=== PATIENT | female | born 1965 | race Two or more races ===

== ENCOUNTER 2018-08-15 09:00 | Emergency (ER) | payer SELFPAY ==
[~2018-08-15] VITALS: Ht 165.1 cm; Wt 64.0 kg
--- NOTE | 2018-08-15 09:07 | NUR ---
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
--- NOTE | 2018-08-15 09:11 | NUR ---
SEEN AND EXAMINED BY DR. ALFORD.
--- NOTE | 2018-08-15 09:14 | NUR ---
verified with Dr Rodriguez, pt is not code stroke. CT order changed to regular head CT.
[2018-08-15] MEDS ORDERED: IV NS 0.9% 1,000 ML BAG IV ONE (09:30)
[2018-08-15] MEDS ORDERED: ONDANSETRON HCL/PF 4 MG/2 ML VIAL ONE (09:30)
[2018-08-15] MEDS ORDERED: ONDANSETRON HCL/PF - ER 4 MG/2 ML VIAL IV ONE (09:30)
--- NOTE | 2018-08-15 09:30 | NUR ---
LABS DRAWNED AND SENT TO LAB. AWAITING RESULTS.
[2018-08-15 09:32] LABS: BASOPHILS # (AUTO) 0.1 /CMM (0.0-0.2); BASOPHILS % (AUTO) 1.2 % (0.0-2.0); EOSINOPHILS % (AUTO) 3.6 % (0.0-6.0); HEMATOCRIT 38 % (33-45); LYMPHOCYTES # (AUTO) 2.3 /CMM (0.8-4.8); LYMPHOCYTES % (AUTO) 37.9 % (20.0-44.0); MEAN CORPUSCULAR HGB CONC 35 g/dl (31.0-36.0); MEAN CORPUSCULAR VOLUME 92 fL (82-100); MONOCYTES # (AUTO) 0.4 /CMM (0.1-1.30); NEUTROPHILS # (AUTO) 3.1 /CMM (1.8-8.9); NEUTROPHILS % (AUTO) 50.3 % (43.0-81.0); PLATELET COUNT (AUTO) 190 /CMM (150-450); RED BLOOD CELL COUNT(AUTO) 4.07 MIL/uL (4.0-5.2); WHITE BLOOD COUNT (AUTO) 6.1 K/uL (4.3-11.0)
[2018-08-15 09:38] LABS: CALCIUM, SERUM 9.5 mg/dL (8.5-10.1); CREATININE 0.7 mg/dL (0.6-1.3); POTASSIUM 3.9 mmol/L (3.5-5.1)
--- NOTE | 2018-08-15 09:58 | NUR ---
PT IS WHEELED TO CT SCAN VIA [facility].
--- NOTE | 2018-08-15 10:00 | NUR ---
pt returned from CT
[2018-08-15] MEDS ORDERED: KETOROLAC TROMETHAMINE INJ 30 MG/ML VIAL ONE (10:11)
[2018-08-15] MEDS ORDERED: KETOROLAC TROMETHAMINE INJ 30 MG/ML VIAL IV ONE (10:30)
--- NOTE | 2018-08-15 11:07 | NUR ---
IV removed. Catheter intact and site benign. Pressure and 4x4 applied to site. No bleeding noted. Patient discharged to home in stable condition. Written and verbal after care instructions given. Patient verbalizes understanding of instruction.
[2018-08-15 11:09] VITALS: BP 136/65
== END 2018-08-15 11:10 | disposition home or self-care (01) ==
LOC: ER 09:02
DX: R51 Headache (principal); R03.0 Elevated blood-pressure reading, without diagnosis of hypertension; F17.200 Nicotine dependence, unspecified, uncomplicated; F41.9 Anxiety disorder, unspecified; F32.9 Major depressive disorder, single episode, unspecified; Z88.6 Allergy status to analgesic agent
CPT/HCPCS: 36415; 70450; 80048; 85025; 85730; 96374; 96375; 99284; A4606; J1885; J2405; J7030